=== PATIENT | male | born 1990 | race American Indian/Alaskan Native ===

== ENCOUNTER 2021-05-24 08:48 | Emergency (ER) | payer OTHER ==
[~2021-05-24] VITALS: Ht 190.5 cm; Wt 136.1 kg
[2021-05-24 09:21] LABS: PLATELET COUNT 288 K/uL (142-355)
[2021-05-24 09:54] LABS: POTASSIUM 3.1 mmol/L (3.6-5.2); SODIUM 138 mmol/L (136-145)
[2021-05-24 12:30] VITALS: BP 113/79; TEMP 98.1
== END 2021-05-24 12:56 | disposition home or self-care (01) ==
LOC: ED 08:59
PROVIDERS: Family Medicine
DX: R14.3 Flatulence (principal); K59.09 Other constipation; X50.1XXA Overexertion from prolonged static or awkward postures, initial encounter; Y92.098 Other place in other non-institutional residence as the place of occurrence of the external cause
CPT/HCPCS: 80053; 82150; 82553; 83605; 83690; 84484; 85027; 93005; 96374; 96375; 99284; J1885; J2405; Q9963

== ENCOUNTER 2021-09-02 21:23 | Emergency (ER) | payer OTHER ==
[~2021-09-02] VITALS: Ht 190.5 cm; Wt 124.3 kg
[2021-09-02 22:26] LABS: PLATELET COUNT 287 K/uL (142-355)
[2021-09-02 22:29] LABS: POTASSIUM 3.7 mmol/L (3.6-5.2)
[2021-09-03 02:50] VITALS: BP 129/84; TEMP 98.7
== END 2021-09-03 02:50 | disposition home or self-care (01) ==
LOC: ED 21:23
PROVIDERS: Family Medicine
DX: J18.9 Pneumonia, unspecified organism (principal); M94.0 Chondrocostal junction syndrome [Tietze]; Z20.822 Contact with and (suspected) exposure to COVID-19; F17.210 Nicotine dependence, cigarettes, uncomplicated
CPT/HCPCS: 36415; 80053; 82150; 82550; 83690; 84484; 85027; 85379; 85610; 85730; 87635; 93005; 96365; 96375; 99284; J0696; J1885; Q9963; U0003

== ENCOUNTER 2022-05-10 01:21 | Emergency (ER) | payer BC ==
[~2022-05-10] VITALS: Ht 190.5 cm; Wt 124.3 kg
[2022-05-10 02:40] VITALS: BP 113/81; TEMP 98.1
== END 2022-05-10 02:40 | disposition home or self-care (01) ==
LOC: ED 01:21
PROC: 0HQFXZZ Repair Right Hand Skin, External Approach (ICD-10-PCS; principal; 2022-05-10)
DX: S61.411A Laceration without foreign body of right hand, initial encounter (principal); W22.8XXA Striking against or struck by other objects, initial encounter; Y92.89 Other specified places as the place of occurrence of the external cause
CPT/HCPCS: 90472; 90715; 96372; 99283; J0690; J7040